=== PATIENT | male | born 1950 | race Hispanic/Latino ===

== ENCOUNTER 2021-09-06 13:58 | Emergency (ER) | payer MEDICARE ==
[~2021-09-06] VITALS: Ht 165.1 cm; Wt 72.6 kg
[2021-09-06] MEDS ORDERED: FUROSEMIDE40 MG PO (15:40)
== END 2021-09-06 16:25 | disposition home or self-care (01) ==
LOC: FSED 14:13
DX: Z43.3 Encounter for attention to colostomy (principal); Z85.038 Personal history of other malignant neoplasm of large intestine; Z92.21 Personal history of antineoplastic chemotherapy; Z92.3 Personal history of irradiation
CPT/HCPCS: 99282